=== PATIENT | male | born 1985 | race Caucasian/White ===

== ENCOUNTER 2017-05-10 09:12 | Inpatient (IN) | payer OTHER ==
[~2017-05-10] VITALS: Ht 175.3 cm; Wt 152.9 kg
[2017-05-10 09:42] LABS: BASOPHIL % 0.4 % (0-2); PLATELET COUNT 236 x10^3mcL (130-400); RED CELL DISTRIBUTION WIDTH 14.2 % (11.5-14.5)
[2017-05-10 09:58] LABS: CARBON DIOXIDE 21.5 mmol/L (21-32); CHLORIDE SERUM 101 mmol/L (98-107); CREATININE SERUM 1.3 mg/dL (0.7-1.3); GFR1 > 60 mL/min; GLUCOSE SERUM 111 mg/dL (74-106); POTASSIUM SERUM 3.2 mmol/L (3.5-5.1); SODIUM SERUM 139 mmol/L (136-145)
[2017-05-10 10:02] LABS: ALBUMIN 4.6 g/dL (3.4-5.0); ALKALINE PHOSPHATASE 76 U/L (46-116); ALT/SGPT 288 U/L (16-63); AST/SGOT 433 U/L (15-37); BILIRUBIN TOTAL 1.62 mg/dL (0.20-1.00)
[2017-05-10 10:03] LABS: TOTAL PROTEIN, SERUM 8.8 g/dL (6.4-8.2)
[2017-05-10 12:46] LABS: T3 TOTAL 1.57 ng/mL
[2017-05-10 13:35] LABS: FREE T4 1.37 ng/dL (0.76-1.46); FREE THYROXINE INDEX 4.5 ug/dL (1.4-4.5); T4(THYROXINE) 12.9 ug/dL (4.7-13.3)
[2017-05-10 14:09] LABS: MAGNESIUM 2.1 mg/dL (1.8-2.4); PHOSPHOROUS 4.5 mg/dL (2.5-4.9)
[2017-05-10 14:11] LABS: CHOLESTEROL/HDL RATIO 7.3
[2017-05-10 14:19] VITALS: BP 138/69
[2017-05-10 18:32] LABS: AMPHETAMINE QUAL UR POSITIVE (NEG <=1000)
[2017-05-10 18:54] VITALS: BP 142/95
[2017-05-10 22:05] VITALS: BP 101/67
[2017-05-11 08:56] LABS: CALCIUM 7.7 mg/dL (8.5-10.1); CARBON DIOXIDE 23.2 mmol/L (21-32); CHLORIDE SERUM 106 mmol/L (98-107); CREATININE SERUM 0.8 mg/dL (0.7-1.3); GFR1 > 60 mL/min; GLUCOSE SERUM 96 mg/dL (74-106); MAGNESIUM 2.2 mg/dL (1.8-2.4); PHOSPHOROUS 3.4 mg/dL (2.5-4.9); POTASSIUM SERUM 3.7 mmol/L (3.5-5.1); SODIUM SERUM 140 mmol/L (136-145)
[2017-05-11 08:59] LABS: BASOPHIL % 0.5 % (0-2); PLATELET COUNT 167 x10^3mcL (130-400); RED CELL DISTRIBUTION WIDTH 14.4 % (11.5-14.5)
[2017-05-11 10:20] VITALS: BP 135/67
[2017-05-11 14:00] VITALS: BP 148/80
[2017-05-11 17:30] VITALS: BP 151/72
[2017-05-11 18:17] LABS: UA SPECIFIC GRAVITY >=1.030 (1.005-1.035); microscopic required? YES; urine erythrocyte NEGATIVE (NEGATIVE)
[2017-05-11 20:27] VITALS: BP 147/88
[2017-05-12 06:09] VITALS: BP 129/83
[2017-05-12 06:09] LABS: BASOPHIL % 0.3 % (0-2); PLATELET COUNT 175 x10^3mcL (130-400); RED CELL DISTRIBUTION WIDTH 14.2 % (11.5-14.5)
[2017-05-12 06:12] LABS: CALCIUM 8.2 mg/dL (8.5-10.1); CARBON DIOXIDE 24.8 mmol/L (21-32); CHLORIDE SERUM 107 mmol/L (98-107); CREATININE SERUM 0.9 mg/dL (0.7-1.3); GFR1 > 60 mL/min; GLUCOSE SERUM 99 mg/dL (74-106); MAGNESIUM 2.2 mg/dL (1.8-2.4); PHOSPHOROUS 3.9 mg/dL (2.5-4.9); POTASSIUM SERUM 3.9 mmol/L (3.5-5.1); SODIUM SERUM 137 mmol/L (136-145)
[2017-05-12 10:04] VITALS: BP 131/85
[2017-05-13 04:31] VITALS: BP 116/81
[2017-05-13 10:33] LABS: BASOPHIL % 0.5 % (0-2); PLATELET COUNT 179 x10^3mcL (130-400); RED CELL DISTRIBUTION WIDTH 14.2 % (11.5-14.5)
[2017-05-13 10:58] LABS: CALCIUM 8.8 mg/dL (8.5-10.1); CARBON DIOXIDE 26.8 mmol/L (21-32); CHLORIDE SERUM 105 mmol/L (98-107); GFR1 > 60 mL/min; GLUCOSE SERUM 98 mg/dL (74-106); PHOSPHOROUS 3.4 mg/dL (2.5-4.9); POTASSIUM SERUM 3.8 mmol/L (3.5-5.1); SODIUM SERUM 139 mmol/L (136-145)
[2017-05-13 17:33] VITALS: BP 123/71
[2017-05-13 21:30] VITALS: BP 145/78
[2017-05-14 04:47] LABS: CALCIUM 8.9 mg/dL (8.5-10.1); CARBON DIOXIDE 28.6 mmol/L (21-32); CHLORIDE SERUM 105 mmol/L (98-107); GFR1 > 60 mL/min; GLUCOSE SERUM 96 mg/dL (74-106); POTASSIUM SERUM 4.2 mmol/L (3.5-5.1); SODIUM SERUM 140 mmol/L (136-145)
[2017-05-14 05:35] VITALS: BP 142/95
[2017-05-14 09:33] VITALS: BP 145/81
[2017-05-14 13:42] VITALS: BP 125/84
[2017-05-14 17:45] VITALS: BP 125/75
[2017-05-14 21:04] VITALS: BP 137/64
[2017-05-15 05:35] VITALS: BP 122/64
[2017-05-15 06:36] LABS: CARBON DIOXIDE 25.5 mmol/L (21-32); CHLORIDE SERUM 104 mmol/L (98-107); CREATININE SERUM 1.1 mg/dL (0.7-1.3); GFR1 > 60 mL/min; GLUCOSE SERUM 92 mg/dL (74-106); SODIUM SERUM 140 mmol/L (136-145)
[2017-05-15 08:20] VITALS: BP 114/64
[2017-05-15 17:04] VITALS: BP 123/67
[2017-05-15 21:27] VITALS: BP 144/86
[2017-05-16 05:14] VITALS: BP 128/87
[2017-05-16 08:20] VITALS: BP 143/87
[2017-05-16 10:00] VITALS: BP 112/71
[2017-05-16] MEDS ORDERED: LAM25 PO (15:12)
[2017-05-16] MEDS ORDERED: PROZ10 PO (15:13)
[2017-05-16] MEDS ORDERED: ZES10 PO (15:15)
[2017-05-16 15:34] VITALS: BP 112/71
== END 2017-05-16 16:19 | disposition home or self-care (01) | DRG 812 ==
LOC: ED 09:12 → DU 11:48 → MU 05-14 18:01
PROVIDERS: Emergency Medicine; Family Medicine; ADMIT Family Medicine
DX: T39.2X Poisoning by, adverse effect of and underdosing of pyrazolone derivatives (principal); N17.0 Acute kidney failure with tubular necrosis; G92 Toxic encephalopathy; M62.82 Rhabdomyolysis; Z68.43 Body mass index [BMI] 50.0-59.9, adult; R45.851 Suicidal ideations; F31.5 Bipolar disorder, current episode depressed, severe, with psychotic features; B18.2 Chronic viral hepatitis C; E87.6 Hypokalemia; Z59.0 Homelessness; F12.10 Cannabis abuse, uncomplicated; F15.10 Other stimulant abuse, uncomplicated; F17.210 Nicotine dependence, cigarettes, uncomplicated; Y92.89 Other specified places as the place of occurrence of the external cause; R73.03 Prediabetes; E66.01 Morbid (severe) obesity due to excess calories; K76.0 Fatty (change of) liver, not elsewhere classified
CPT/HCPCS: 82962; 83880; 84439; G0480; J1885; J2060; J3480; J7030; Q0092